=== PATIENT | female | born 1985 ===

== ENCOUNTER 2022-01-19 09:49 | Emergency (ER) | payer OTHER ==
[2022-01-19] MEDS ORDERED: SODIUM CHLORIDE 0.9% 2,000 ML IV ONE (10:08)
[2022-01-19] MEDS ORDERED: ONDANSETRON 4 MG/2 ML VIAL IVP STA (10:08)
[2022-01-19 10:50] LABS: ALT 25 U/L (4-34); African American GFR (CKD) >90 (>60 ml/min/1.73 sqM); Albumin 3.8 g/dL (3.5-5.0); Anion Gap 8 mmol/L; Blood Urea Nitrogen 3 mg/dL (7-17); Calcium 8.9 mg/dL (8.4-10.2); Carbon Dioxide 19 mmol/L (22-30); Chloride 107 mmol/L (98-107); Glucose 86 mg/dL (74-99); Non-African American GFR(CKD) >90 (>60 ml/min/1.73 sqM); Sodium 134 mmol/L (137-145); Total Bilirubin 1.5 mg/dL (0.2-1.3); Total Protein 7.2 g/dL (6.3-8.2)
[2022-01-19 10:57] LABS: Appearance,Urine Cloudy (Clear); Bacteria,Urine Rare /hpf; Bilirubin,Urine 1+ (Negative); Blood,Urine Negative (Negative); Color,Urine Orange; Glucose,Urine (UA) Negative (Negative); Ketones,Urine 1+ (Negative); Leukocyte Esterase,Urine Large (Negative); Mucus,Urine Few /hpf; Nitrite,Urine Negative (Negative); Protein,Urine Trace (Negative); Squamous Epithelial Cell,Urine 24 /hpf (0-4); WBC,Urine 7 /hpf (0-5)
[2022-01-19 11:02] LABS: AST 40 U/L (14-36); Alkaline Phosphatase 88 U/L (38-126); Potassium 4.5 mmol/L (3.5-5.1)
[2022-01-19 11:07] LABS: Basophils % (A) 0 %; Eosinophils # (A) 0.1 k/uL (0-0.7); Eosinophils % (A) 1 %; HCT 42.6 % (34.0-46.0); Lymphocytes # (A) 1.8 k/uL (1.0-4.8); Lymphocytes % (A) 19 %; MCH 30.5 pg (25.0-35.0); MCHC 32.9 g/dL (31.0-37.0); MCV 92.8 fL (80.0-100.0); Mean Platelet Volume 8.1; Monocytes # (A) 0.7 k/uL (0-1.0); Monocytes % (A) 7 %; Neutrophils # (A) 6.6 k/uL (1.3-7.7); Neutrophils % (A) 71 %; Platelet Count 357 k/uL (150-450); RBC 4.59 m/uL (3.80-5.40); RDW 12.1 % (11.5-15.5); WBC 9.3 k/uL (3.8-10.6)
--- NOTE | 2022-01-19 11:16 | ED ---
Nausea/Vomiting/Diarrhea HPI - General Chief complaint: Nausea/Vomiting/Diarrhea Stated complaint: covid+, dehydration Time Seen by Provider: 01/19/22 09:56 Source: patient, RN notes reviewed Mode of arrival: ambulatory Limitations: no limitations - History of Present Illness Initial comments: This is a 37-year-old female presents emergency apartment with chief complaint of nausea vomiting, dehydration. Patient states that she started symptoms COVID-19 one week ago. She did test positive she was seen at [facility] which she was diagnosed with UTI, Kemar. Patient states that she still been having intermittent nausea vomiting. Patient called her [facility] Dr. Rogers who recommended to come emergency department. She denies any complaints. She states she is 24 weeks she is A0. Denies any vaginal bleeding or vaginal discharge. Patient states she's had no recent fever states the fever chills beginning. - Related Data Previous Rx's Medication Instructions Recorded Ondansetron Odt [Zofran Odt] 4 mg PO Q8HR PRN #10 tab 01/19/22 Allergies Allergy/AdvReac Type Severity Reaction Status Date / Time No Known Allergies Allergy Verified 01/19/22 09:56 Review of Systems ROS Statement: Those systems with pertinent positive or pertinent negative responses have been documented in the HPI. ROS Other: All systems not noted in ROS Statement are negative. Past Medical History Past Medical History: No Reported History History of Any Multi-Drug Resistant Organisms: None Reported Past Surgical History: No Surgical Hx Reported Past Psychological History: No Psychological Hx Reported Smoking Status: Never smoker Past Alcohol Use History: None Reported Past Drug Use History: None Reported General Exam Limitations: no limitations General appearance: alert, in no apparent distress Head exam: Present: atraumatic, normocephalic, normal inspection Eye exam: Present: normal appearance, PERRL, EOMI. Absent: scleral icterus, conjunctival injection, periorbital swelling Respiratory exam: Present: normal lung sounds bilaterally. Absent: respiratory distress, wheezes, rales, rhonchi, stridor Cardiovascular Exam: Present: regular rate, normal rhythm, normal heart sounds. Absent: systolic murmur, diastolic murmur, rubs, gallop, clicks GI/Abdominal exam: Present: soft, normal bowel sounds. Absent: distended, tenderness, guarding, rebound, rigid Back exam: Absent: CVA tenderness (R), CVA tenderness (L) Neurological exam: Present: alert, oriented X3 Course Vital Signs 01/19/22 09:53 Temperature 98.1 F Pulse Rate 75 Respiratory 20 Rate Blood Pressure 121/84 O2 Sat by Pulse 99 Oximetry Medical Decision Making - Medical Decision Making Patient was well hydrated, labs do not reveal any significant findings. Urinalysis shows small amount of bacteria though patient on antibiotics. Patient discharged in stable condition return parameters were discussed. - Lab Data Result diagrams: 01/19/22 10:19 01/19/22 10:19 Lab Results 01/19/22 01/19/22 01/19/22 Range/Units 10:19 10:19 10:19 WBC 9.3 (3.8-10.6) k/uL RBC 4.59 (3.80-5.40) m/uL Hgb 14.0 (11.4-16.0) gm/dL Hct 42.6 (34.0-46.0) % MCV 92.8 (80.0-100.0) fL MCH 30.5 (25.0-35.0) pg MCHC 32.9 (31.0-37.0) g/dL RDW 12.1 (11.5-15.5) % Plt Count 357 (150-450) k/uL MPV 8.1 Neutrophils % 71 % Lymphocytes % 19 % Monocytes % 7 % Eosinophils % 1 % Basophils % 0 % Neutrophils # 6.6 (1.3-7.7) k/uL Lymphocytes # 1.8 (1.0-4.8) k/uL Monocytes # 0.7 (0-1.0) k/uL Eosinophils # 0.1 (0-0.7) k/uL Basophils # 0.0 (0-0.2) k/uL Sodium 134 L (137-145) mmol/L Potassium 4.5 (3.5-5.1) mmol/L Chloride 107 (98-107) mmol/L Carbon Dioxide 19 L (22-30) mmol/L Anion Gap 8 mmol/L BUN 3 L (7-17) mg/dL Creatinine 0.49 L (0.52-1.04) mg/dL Est GFR (CKD-EPI)AfAm >90 (>60 ml/min/1.73 sqM) Est GFR (CKD-EPI)NonAf >90 (>60 ml/min/1.73 sqM) Glucose 86 (74-99) mg/dL Calcium 8.9 (8.4-10.2) mg/dL Total Bilirubin 1.5 H (0.2-1.3) mg/dL AST 40 H (14-36) U/L ALT 25 (4-34) U/L Alkaline Phosphatase 88 (38-126) U/L Total Protein 7.2 (6.3-8.2) g/dL Albumin 3.8 (3.5-5.0) g/dL Urine Color [place] Urine Appearance Cloudy H (Clear) Urine pH 6.0 (5.0-8.0) Ur Specific [place] 1.020 (1.001-1.035) Urine Protein Trace H (Negative) Urine Glucose (UA) Negative (Negative) Urine Ketones 1+ H (Negative) Urine Blood Negative (Negative) Urine Nitrite Negative (Negative) Urine Bilirubin 1+ H (Negative) Urine Urobilinogen 8.0 (<2.0) mg/dL Ur Leukocyte Esterase Large H (Negative) Urine WBC 7 H (0-5) /hpf Ur Squamous Epith Cells 24 H (0-4) /hpf Urine Bacteria Rare H (None) /hpf Urine Mucus Few H (None) /hpf Disposition Clinical Impression: COVID-19, Nausea & vomiting Disposition: HOME SELF-CARE Condition: Stable Instructions (If sedation given, give patient instructions): Acute Nausea and Vomiting (ED) Additional Instructions: Please return to the Emergency Department if symptoms worsen or any other concerns. Prescriptions: Ondansetron Odt [Zofran Odt] 4 mg PO Q8HR PRN #10 tab PRN Reason: Nausea Is patient prescribed a controlled substance at d/c from ED?: No Referrals: None,Stated [Primary Care Provider] - 1-2 days Time of Disposition: 11:15
[2022-01-19 11:36] VITALS: BP 106/71; RESP 18; TEMP 97.6
[2022-01-19 11:40] VITALS: PULSE 74
== END 2022-01-19 11:55 | disposition home or self-care (01) ==
LOC: EC 09:49
DX: U07.1 COVID-19 (principal); R11.2 Nausea with vomiting, unspecified
CPT/HCPCS: 36415; 80053; 85025; 81001; 99284; 96374; 96361; J2405

== ENCOUNTER 2022-04-26 04:16 | Inpatient (IN) | payer MEDICAID, OTHER ==
[2022-04-26 05:52] LABS: Basophils % (A) 0 %; Eosinophils # (A) 0.1 k/uL (0-0.7); Eosinophils % (A) 1 %; HCT 35.3 % (34.0-46.0); HGB 12.2 gm/dL (11.4-16.0); Lymphocytes # (A) 1.8 k/uL (1.0-4.8); Lymphocytes % (A) 21 %; MCH 29.9 pg (25.0-35.0); MCHC 34.5 g/dL (31.0-37.0); MCV 86.7 fL (80.0-100.0); Mean Platelet Volume 9.3; Monocytes # (A) 0.5 k/uL (0-1.0); Monocytes % (A) 6 %; Neutrophils # (A) 6.2 k/uL (1.3-7.7); Neutrophils % (A) 69 %; Platelet Count 277 k/uL (150-450); RBC 4.07 m/uL (3.80-5.40); RDW 13.1 % (11.5-15.5); WBC 8.9 k/uL (3.8-10.6)
[2022-04-26 05:59] LABS: Appearance,Urine Cloudy (Clear); Bacteria,Urine Occasional /hpf; Bilirubin,Urine Negative (Negative); Blood,Urine Negative (Negative); Color,Urine Yellow; Glucose,Urine (UA) Negative (Negative); Ketones,Urine Negative (Negative); Leukocyte Esterase,Urine Large (Negative); Mucus,Urine Rare /hpf; Nitrite,Urine Negative (Negative); Protein,Urine Trace (Negative); RBC,Urine 8 /hpf (0-5); Specific Gravity,Urine 1.013 (1.001-1.035); Squamous Epithelial Cell,Urine 4 /hpf (0-4); Urobilinogen,Urine <2.0 mg/dL (<2.0); WBC,Urine 19 /hpf (0-5)
[2022-04-26 06:01] LABS: INR 0.9 (<1.2); Partial Thromboplastin Time 22.1 sec (22.0-30.0); Prothrombin Time 9.7 sec (9.0-12.0)
[2022-04-26 06:10] LABS: ALT 13 U/L (4-34); AST 18 U/L (14-36); African American GFR (CKD) >90 (>60 ml/min/1.73 sqM); Blood Urea Nitrogen 5 mg/dL (7-17); LDH 458 U/L (313-618); Magnesium 1.5 mg/dL (1.6-2.3); Non-African American GFR(CKD) >90 (>60 ml/min/1.73 sqM); Uric Acid 3.2 mg/dL (3.7-7.4)
[2022-04-26 06:44] LABS: Protein/Creatinine Ratio,Urine 0.187
[2022-04-26] MEDS ORDERED: CITRIC ACID-SODIUM CITRATE 15 ML CUP PO ONE (07:48)
[2022-04-26 08:20] LABS: Glucose,Whole Blood 86 mg/dL (70-110)
[2022-04-26] MEDS: LACTATED RINGERS 1,000 ML IV SCH ×5 (08:25→14:39)
[2022-04-26] MEDS ORDERED: PHENYLEPHRINE-0.9% NACL SYG 1,000 MCG/10 ML SYRINGE ONE (08:44)
[2022-04-26] MEDS ORDERED: KETOROLAC 15 MG/ML 1 ML VIAL ONE (08:44)
[2022-04-26] MEDS ORDERED: ONDANSETRON 4 MG/2 ML VIAL ONE (08:44)
[2022-04-26] MEDS ORDERED: fentaNYL (PF) 50 MCG/ML 2 ML AMP ONE (08:44)
[2022-04-26] MEDS ORDERED: NALBUPHINE 10 MG/ML (1 ML AMP) ONE (08:44)
[2022-04-26] MEDS ORDERED: OXYTOCIN 30 UNITS/500 ML NS BAG IV ONE (08:44)
[2022-04-26] MEDS ORDERED: MORPHINE SULFATE (PF) 0.3 MG/0.3 ML SYR ONE (08:44)
--- NOTE | 2022-04-26 09:45 | P.HPOB ---
History of Present Illness H&P Date: 04/26/22 Chief Complaint: Contractions This is a 37-year-old female 2 para 1 with an estimated date of confinement of 05/07/2022, estimated gestational age of 38-4/7 weeks, who presents to labor and delivery complaining of contractions that began a couple days ago and were approximately every 15 minutes when she came in. On arrival her blood pressures were elevated initially around 170 over 90s but did come down. All of her preeclamptic workup was negative. In light of the contractions and labile blood pressures, the decision is made to proceed with repeat section today. In addition she has requested tubal ligation. She has previously signed consents in the office for this. Her was complicated by gestational diabetes diet controlled. In addition the baby was diagnosed with trisomy 21. labs: Group B streptococcus-negative One hour Glucola-188 Hepatitis B surface antigen-negative RPR-nonreactive Rubella-nonimmune Blood type-AB+ Antibody screen-negative HIV-nonreactive Hemoglobin-12.6 Random glucose-163 Pap smear-within normal limits, positive high risk HPV, type XVI and 18-negative GC/chlamydia/Trichomonas-negative Obstetrical history: . History of 1 delivery at term for breech presentation. Gynecologic history: No history of sexual transmitted diseases. Social history: She is single. She is currently unemployed. Review of Systems Constitutional: Denies chills, Denies fever Eyes: denies blurred vision, denies pain Ears, nose, mouth and throat: Denies headache, Denies sore throat Cardiovascular: Denies chest pain, Denies shortness of breath Respiratory: Denies cough Gastrointestinal: Reports abdominal pain (Contractions) Genitourinary: Reports pelvic pain, Reports Musculoskeletal: Reports low back pain Integumentary: Denies pruritus, Denies rash Neurological: Denies numbness, Denies weakness Psychiatric: Denies anxiety, Denies depression Past Medical History Additional Past Medical History / Comment(s): Gestational diabetes-diet controlled History of Any Multi-Drug Resistant Organisms: None Reported Past Surgical History: Section Past Anesthesia/Blood Transfusion Reactions: No Reported Reaction Past Psychological History: No Psychological Hx Reported Smoking Status: Never smoker Past Alcohol Use History: None Reported Past Drug Use History: None Reported - Past Family History Mother Family Medical History: Diabetes Mellitus Medications and Allergies Home Medications Medication Instructions Recorded Confirmed Type Vit No.179/Iron/Folic 1 tab PO DAILY 04/26/22 04/26/22 History [ Tablet] Allergies Allergy/AdvReac Type Severity Reaction Status Date / Time No Known Allergies Allergy Verified 01/19/22 09:56 Exam Osteopathic Statement: *. No significant issues noted on an osteopathic structural exam other than those noted in the History and Physical/Consult. Vital Signs Temp Pulse Resp BP Pulse Ox 04/26/22 07:23 98.2 F 86 16 138/86 99 04/26/22 04:21 97.3 F L 89 16 173/97 99 Intake and Output 04/25/22 04/26/22 04/26/22 22:59 06:59 14:59 Other: Weight 97.522 kg 97.522 kg HEENT: Within normal limits Heart: Regular rate and rhythm Lungs: Clear to auscultation bilaterally Abdomen: Cervix: Was not checked on admission heart tones: Reactive, category 1 Contractions: Approximately every 15 minutes Extremities: Negative Homans Results Result Diagrams: 04/26/22 05:37 04/26/22 05:37 Abnormal Lab Results - Last 24 Hours (Table) 04/26/22 04/26/22 04/26/22 Range/Units 05:37 05:37 05:37 Fibrinogen 571 H (200-500) mg/dL BUN 5 L (7-17) mg/dL Creatinine 0.46 L (0.52-1.04) mg/dL Uric Acid 3.2 L (3.7-7.4) mg/dL Magnesium 1.5 L (1.6-2.3) mg/dL Urine Appearance Cloudy H (Clear) Urine Protein Trace H (Negative) Ur Leukocyte Esterase Large H (Negative) Urine RBC 8 H (0-5) /hpf Urine WBC 19 H (0-5) /hpf Urine Bacteria Occasional H (None) /hpf Urine Mucus Rare H (None) /hpf Assessment and Plan (1) 38 weeks gestation of Current Visit: Yes Status: Acute Code(s): Z3A.38 - 38 WEEKS GESTATION OF SNOMED Code(s): 45336331 (2) Gestational diabetes Current Visit: Yes Status: Acute Code(s): O24.419 - GESTATIONAL DIABETES MELLITUS IN , UNSP CONTROL SNOMED Code(s): 06080184 (3) Gestational hypertension Current Visit: Yes Status: Acute Code(s): O13.9 - GESTATIONAL HTN W/O SIGNIFICANT PROTEINURIA, UNSP TRIMESTER SNOMED Code(s): 27244364 (4) History of delivery Current Visit: Yes Status: Acute Code(s): Z98.891 - HISTORY OF UTERINE SCAR FROM PREVIOUS SURGERY SNOMED Code(s): 162924062 (5) Family planning Current Visit: Yes Status: Acute Code(s): Z30.09 - ENCOUNTER FOR OT GENERAL CNSL AND ADVICE ON CONTRACEPTION SNOMED Code(s): 485625993 (6) Trisomy 21 of fetus in current shahid Current Visit: Yes Status: Acute Code(s): O35.13X0 - MAT CARE CHROMOSOMAL ABNORMALITY IN FETUS, TRISOMY 21, UNSP SNOMED Code(s): 293338333851703 Plan: Admission for repeat low transverse section with bilateral partial salpingectomy. Will monitor blood pressures. I have discussed the risks, benefits, and alternative therapies for the above- mentioned procedure and for both sedation/anesthesia as well as necessary blood products administration, if indicated, as they pertain to this patient. The patient has indicated her understanding and acceptance of the risks and procedures discussed.
--- NOTE | 2022-04-26 09:50 | P.OP ---
Date of Procedure: 04/26/22 Preoperative Diagnosis: 1. Intrauterine at 38-4/7 weeks. 2. Gestational hypertension. 3. Gestational diabetes. 4. Family-planning. 5. History of previous . 6. Fetus with trisomy 21. Postoperative Diagnosis: Same Procedure(s) Performed: Repeat low transverse section with bilateral partial salpingectomy Anesthesia: spinal (Duramorph) Surgeon: Lanette Rogers Director Smb Sales #1: Shanthi Diaz Estimated Blood Loss (ml): 400 Pathology: other (Placenta, portions of right and left fallopian tubes) Condition: stable Disposition: floor Indications for Procedure: This is a 37-year-old female 2 para 1 at 38-2/7 weeks who presented with regular contractions and elevated blood pressures. Preeclamptic workup was negative and blood pressures did normalize area due to the diagnosis of gestational hypertension, the decision is made to proceed with repeat section with bilateral partial salpingectomy. I have discussed the risks, benefits, and alternative therapies for the above- mentioned procedure and for both sedation/anesthesia as well as necessary blood products administration, if indicated, as they pertain to this patient. The patient has indicated her understanding and acceptance of the risks and proced ures discussed. Operative Findings: A viable male infant is noted in the vertex presentation with scores of 8 at 1 minute and 9 at 5 minutes and nuchal cord times one. Infant weight was 8 lbs. 11 oz. Normal uterus tubes and ovaries are noted. Description of Procedure: The patient is taken to the operating room where she is placed in the dorsal supine position with leftward tilt after spinal Duramorph anesthesia is given. She is prepped and draped in the normal sterile fashion. Skin was tested and found to be adequately anesthetized. A Pfannenstiel skin incision was made with a scalpel. A second knife was used to carry the incision down to the underlying layer of fascia. The fascia was nicked in the midline with a scalpel and then extended laterally bilaterally with Patel scissors. The anterior lip of the fascia was grasped with 2 Linda clamps and then dissected off the underlying rectus muscle in the midline with Patel scissors. The inferior aspect of the fascial incision was grasped with 2 Linda clamps and dissected off the underlying rectus muscle and the midline with Patel scissors. Next the peritoneum layer was tented up with 2 hemostats and then entered sharply with the scalpel. The incision is extended superiorly and inferiorly with Metzenbaum scissors. Next a DeLee retractor is placed. The vesicouterine peritoneum is entered sharply with Metzenbaum scissors and extended laterally bilaterally with Metzenbaum scissors and then the bladder flap is pushed inferiorly. The lower uterine segment is incised in transverse fashion with the scalpel and then bluntly entered with a hemostat. Clear fluid is noted. The incision was then extended laterally bilaterally with 2 fingers. Next the 's head is delivered through the incision. Nuchal cord times one was reduced around the 's head. Nose and mouth are bulb suctioned. The remainder of the is easily delivered and placed on mother's abdomen. Cord is clamped and cut. Infant is taken to warmer by nursing staff. Uterine fundus is gently massaged and placenta is delivered manually. Uterus is exteriorized and cleared of all clots and debris. Uterine incision is closed with 0 Vicryl suture in a running locked fashion. A second layer of 0 Vicryl suture is used in a running fashion for hemostasis. The vesicouterine peritoneum was noted to be hemostatic. Attention is then turned to the tubes. The right fallopian tube is grasped in the midportion with a hemostat. The mesosalpinx is entered with Bovie cautery. 0 Vicryl suture is tied 2 times around both the proximal and distal portion of the tube. The knuckle of tube was then removed with Metzenbaum scissors and the ends of the tube are cauterized with Bovie cautery. The same procedure is carried out on the left fallopian tube. Posterior cul-de-sac is suctioned of all clots and debris. Uterus is returned to the abdomen. Incision is noted to be hemostatic. Both tubal segments were inspected and noted to be hemostatic. Peritoneal layer is closed with 0 Vicryl suture in a running fashion. Muscle layer is reapproximated with 0 Vicryl suture in interrupted fashion. Fascia layer is then closed with 0 PDS suture with 2 sutures meeting in the midline and the knots buried in either side and in the midline. The subcutaneous tissue was then closed with 2-0 Vicryl suture. Skin layer was then closed with sly. All sponge and needle counts are correct. The patient is taken to recovery room in stable condition.
[2022-04-26] MEDS ORDERED: NALOXONE 0.4 MG/ML 1 ML VIAL IV PRN ×2 (09:59→10:34)
--- NOTE | 2022-04-26 10:03 | P.ANPRN ---
Procedure Note - Anesthesia - Epidural/Spinal Spinal Time Out Performed: Yes Date of Procedure: 04/19/22 Procedure Stop Time: 08:56 Location of Patient: OB Indication: Acute Post-Operative Pain, Requested by Surgeon Sedation Type: Awake Preparation: Sterile Dressing Position: Sitting Catheter: None Needle Guage: 25, Other (see comment) (3.5 inch Spinal needle used.) Blood Aspirated: No Pain Paresthesia on Injection Noted: No Events: Other (see comment) (1.6 mL of 0.65% preservative-free bupivacaine heavy prepared by central pharmacy under sterile conditions. 1.6 mL of 0.65% bupivacaine heavy mixed with 300 g of preservative free morphine)
[2022-04-26] MEDS ORDERED: diphenhydrAMINE 25 MG CAP PO PRN (10:34)
[2022-04-26] MEDS ORDERED: HYDROmorphone 1 MG/ML 1 ML SYRINGE IVP PRN (10:34)
[2022-04-26] MEDS ORDERED: METOCLOPRAMIDE 5 MG/ML 2 ML VIAL IVP PRN (10:34)
[2022-04-26] MEDS ORDERED: ZOLPIDEM 5 MG TAB PO PRN (10:34)
[2022-04-26] MEDS ORDERED: diphenhydrAMINE 50 MG/ML 1 ML VIAL IVP PRN ×2 (10:34)
[2022-04-26] MEDS ORDERED: ONDANSETRON 4 MG/2 ML VIAL IVP PRN (10:34)
[2022-04-26] MEDS ORDERED: SIMETHICONE 80 MG CHEWABLE PO PRN (10:34)
[2022-04-26] MEDS ORDERED: OXYTOCIN 30 UNITS/500 ML NS 30 UNIT in SALINE 1 500ML.BAG IV SCH (10:34)
[2022-04-26] MEDS ORDERED: diphenhydrAMINE 50 MG CAP PO PRN (10:34)
[2022-04-26] MEDS ORDERED: HYDROmorphone 0.5 MG/0.5 ML SYRINGE IVP PRN (10:34)
[2022-04-26] MEDS ORDERED: MEASLES-MUMPS-RUBELLA VACC/PF 12,500 UNIT/0.5 ML VIAL SQ ONE (10:34)
[2022-04-26] MEDS ORDERED: LANOLIN CREAM 5 GM TUBE TOPICAL PRN (10:34)
[2022-04-26] MEDS: ACETAMINOPHEN TAB 500 MG TAB PO SCH ×2 (14:37→22:22)
[2022-04-26] MEDS: KETOROLAC 15 MG/ML 1 ML VIAL IVP SCH ×2 (16:07→23:37)
[2022-04-26] MEDS: IBUPROFEN 600 MG TAB PO SCH ×2 (20:06→22:19)
[2022-04-26] MEDS: ACETAMINOPHEN IV (For NPO) 1,000 MG in EMPTY BAG 1 BAG IVPB SCH ×2 (20:06→23:37)
[2022-04-26] MEDS: SENNOSIDES-DOCUSATE SODIUM 1 EACH TAB PO SCH (22:23)
[2022-04-27] MEDS: ACETAMINOPHEN TAB 500 MG TAB PO SCH ×4 (02:09→23:21)
[2022-04-27] MEDS: LACTATED RINGERS 1,000 ML IV SCH ×2 (04:09→20:10)
[2022-04-27] MEDS: IBUPROFEN 600 MG TAB PO SCH ×4 (04:09→23:11)
[2022-04-27] MEDS: KETOROLAC 15 MG/ML 1 ML VIAL IVP SCH ×2 (04:10→20:10)
[2022-04-27 07:09] LABS: Basophils % (A) 0 %; Eosinophils % (A) 0 %; HCT 32.4 % (34.0-46.0); HGB 11.1 gm/dL (11.4-16.0); Lymphocytes # (A) 1.5 k/uL (1.0-4.8); Lymphocytes % (A) 12 %; MCH 30.2 pg (25.0-35.0); MCHC 34.3 g/dL (31.0-37.0); MCV 88.1 fL (80.0-100.0); Mean Platelet Volume 9.5; Monocytes # (A) 0.8 k/uL (0-1.0); Monocytes % (A) 7 %; Neutrophils # (A) 9.9 k/uL (1.3-7.7); Neutrophils % (A) 79 %; Platelet Count 230 k/uL (150-450); RBC 3.68 m/uL (3.80-5.40); RDW 12.8 % (11.5-15.5); WBC 12.5 k/uL (3.8-10.6)
[2022-04-27] MEDS: SENNOSIDES-DOCUSATE SODIUM 1 EACH TAB PO SCH ×2 (08:02→23:21)
--- NOTE | 2022-04-27 08:05 | P.PN ---
Progress Note - Text Progress Note Date: 04/27/22 (0221) Anesthesia Postop day 1 Subjective: Status Post section with Duramorph. Patient seen and examined. Doing well without complaint. VAS 4 out of 10. Nausea vomiting or pruritus. Denies fever. Gross lower extremity strength intact. Spinal site intact without induration. Without apparent anesthetic complications. Objective: Vital signs reviewed Heart: Regular Rate Lungs: Good chest excursion Abdomen: Appears nondistended Assessment: Status post with Duramorph postop day 1 Plan: Continue current care with your medical management.
--- NOTE | 2022-04-27 08:56 | P.PNOBGPC ---
Subjective - Subjective Principal diagnosis: Status post repeat section with tubal ligation POD #1 Interval history: Patient is doing fairly well. Lochia is slowing down. Pain is well-controlled. She is passing flatus but no bowel movement yet. She is pumping her breast milk. Baby is in level I nursery on some oxygen at this time. Patient reports: Reports appetite normal, Reports voiding normally, Reports pain well controlled, Reports ambulating normally : other (In level I nursery) Objective - Vital Signs Latest vital signs: Vital Signs Temp Pulse Resp BP Pulse Ox 04/27/22 08:00 98.0 F 78 18 141/82 04/27/22 04:00 98.1 F 76 16 118/80 96 04/27/22 03:00 99 04/26/22 22:46 99 04/26/22 22:20 98.5 F 81 18 133/87 99 04/26/22 15:50 98.9 F 80 16 121/74 04/26/22 15:00 98.9 F 80 16 121/74 97 04/26/22 13:00 17 04/26/22 11:39 80 16 130/76 95 04/26/22 11:09 87 16 124/83 98 04/26/22 11:00 16 04/26/22 10:39 78 16 128/85 99 04/26/22 10:24 80 16 153/88 96 04/26/22 10:09 79 16 141/98 94 L 04/26/22 10:00 16 96 04/26/22 09:54 76 16 142/88 95 04/26/22 09:39 77 16 150/91 77 L Intake and Output 04/26/22 04/27/22 04/27/22 22:59 06:59 14:59 Intake Total 540 Output Total 500 500 400 Balance -500 40 -400 Intake: Oral 540 Output: Urine 500 500 400 Uretheral ([place]) 500 Other: # Voids 1 - Exam Extremities: Present: normal. Absent: tenderness, edema Abdomen: Present: normal appearance, soft. Absent: distention, tenderness Incision: Present: normal, dry, intact. Absent: erythematous Uterus: Present: normal, firm. Absent: tenderness - Labs Labs: Abnormal Lab Results - Last 24 Hours (Table) 04/27/22 Range/Units 06:44 WBC 12.5 H (3.8-10.6) k/uL RBC 3.68 L (3.80-5.40) m/uL Hgb 11.1 L (11.4-16.0) gm/dL Hct 32.4 L (34.0-46.0) % Neutrophils # 9.9 H (1.3-7.7) k/uL Assessment and Plan Assessment: Status post repeat low transverse section with bilateral partial salpingectomy postoperative day #1 (1) 38 weeks gestation of Current Visit: Yes Status: Acute Code(s): Z3A.38 - 38 WEEKS GESTATION OF SNOMED Code(s): 10999011 (2) Gestational diabetes Current Visit: Yes Status: Acute Code(s): O24.419 - GESTATIONAL DIABETES MELLITUS IN , UNSP CONTROL SNOMED Code(s): 25556485 (3) Gestational hypertension Current Visit: Yes Status: Acute Code(s): O13.9 - GESTATIONAL HTN W/O SIGNIFICANT PROTEINURIA, UNSP TRIMESTER SNOMED Code(s): 31125946 (4) History of delivery Current Visit: Yes Status: Acute Code(s): Z98.891 - HISTORY OF UTERINE SCAR FROM PREVIOUS SURGERY SNOMED Code(s): 529408116 (5) Family planning Current Visit: Yes Status: Acute Code(s): Z30.09 - ENCOUNTER FOR OTH GENERAL CNSL AND ADVICE ON CONTRACEPTION SNOMED Code(s): 806470962 (6) Trisomy 21 of fetus in current shahid Current Visit: Yes Status: Acute Code(s): O35.13X0 - MAT CARE CHROMOSOMAL ABNORMALITY IN FETUS, TRISOMY 21, UNSP SNOMED Code(s): 118777796321154 Plan: Continue with postoperative care. Will order breast pump today. Advance diet as tolerated. Dr. Diaz will be covering her care this weekend.
--- NOTE | 2022-04-27 08:59 | P.MSEPDOC ---
Presenting Problems - Arrival Data Date of Arrival on Unit: 04/26/22 Time of Arrival on Unit: 07:08 Mode of Transport: Bed - Complaint OB-Reason for Admission/Chief Complaint: PIH Medical History - Information : 2 Para: 1 Term: 1 : 0 Abortions: Spontaneous or Elective: 0 Number of Living Children: 1 - Gestational Age Gestational Age by CORI (wks/days): 39 Weeks and 1 Days - History Complications: Prior Review of Systems - Review of Systems Constitutional: No problems Breast: No problems ENT: No problems Cardiovascular: No problems Respiratory: No problems Gastrointestinal: No problems Genitourinary: No problems Musculoskeletal: No problems Neurological: No problems Skin: No problems Vital Signs - Temperature Temperature: 98.0 F Temperature Source: Oral - Pulse Pulse Oximetery Pulse Rate: 78 Pulse Assessment Method: Automatic Cuff - Respirations Respiratory Rate: 18 Oxygen Delivery Method: Room Air - Blood Pressure Right Arm Blood Pressure: 141/82 Blood Pressure Mean: 101 Blood Pressure Source: Automatic Cuff Medical Screen Scoring - Assessment - Baby A Heart Rate - NICHD Category: Category I (Normal) NST: Reactive Physician Notification - Physician Notified Physician Notified Date: 04/26/22 Physician Notified Time: 07:05 Physician: Lanette Rogers Order Received: Yes - Notification Comment Comment: Orders to admit patient for section with tubal ligation Maternal Triage Index - Stat/Priority 1 Stat Priority 1: No - Urgent/Priority 2 Urgent Priority 2: No - Prompt/Priority 3 Prompt Priority 3: Yes Criteria Met for Priority 3: patient admitted for [facility] Disposition - Disposition OB Disposition: Admit Transferred to:: st 2 I agree with the RN Medical Screening Exam: Yes Case reviewed; plan agreed upon as documented in EMR&OBIX.: Yes Diagnosis: GESTATIONAL HTN W/O SIGNIFICANT PROTEINURIA, THIRD TRIMESTER
[2022-04-28] MEDS: ACETAMINOPHEN TAB 500 MG TAB PO SCH ×4 (02:06→20:59)
[2022-04-28] MEDS: SENNOSIDES-DOCUSATE SODIUM 1 EACH TAB PO SCH ×2 (08:19→20:59)
--- NOTE | 2022-04-28 09:54 | P.PNOBGPC ---
Subjective - Subjective Principal diagnosis: Status post repeat low transverse postop day 2 Interval history: Patient seen and examined. Denies nausea, vomiting, chest pain, shortness of breath or any calf pain. Patient reports: Reports appetite normal, Reports voiding normally, Reports pain well controlled, Reports ambulating normally Objective - Vital Signs Latest vital signs: Vital Signs Temp Pulse Resp BP Pulse Ox 04/27/22 23:59 97.9 F 90 16 123/81 98 04/27/22 15:02 98 F 88 16 144/82 Intake and Output 04/27/22 04/28/22 04/28/22 22:59 06:59 14:59 Other: Voiding Method Toilet Indwelling Catheter # Voids 2 - Exam Lungs: bilateral: normal Chest: Normal S1, Normal S2 Extremities: Present: normal Abdomen: Present: normal appearance, soft. Absent: distention, tenderness Incision: Present: normal, dry, intact Uterus: Present: normal, firm Assessment and Plan (1) Status post repeat low transverse section Current Visit: Yes Status: Acute Code(s): Z98.891 - HISTORY OF UTERINE SCAR FROM PREVIOUS SURGERY SNOMED Code(s): 295428113 Plan: 1. Increase ambulation 2. Pain management
[2022-04-28] MEDS: IBUPROFEN 600 MG TAB PO SCH ×4 (11:46→23:55)
[2022-04-29] MEDS: ACETAMINOPHEN TAB 500 MG TAB PO SCH ×2 (03:02→18:20)
[2022-04-29] MEDS: IBUPROFEN 600 MG TAB PO SCH ×3 (07:57→17:04)
--- NOTE | 2022-04-29 09:09 | P.PNOBGPC ---
Subjective - Subjective Principal diagnosis: Status post repeat low transverse postop day #3 Interval history: Patient seen and examined. Denies nausea, vomiting, chest pain, shortness of breath or any calf pain. Patient is seen holding her baby in the nursery. Patient reports: Reports appetite normal, Reports voiding normally, Reports pain well controlled, Reports ambulating normally Objective - Vital Signs Latest vital signs: Vital Signs Temp Pulse Resp BP Pulse Ox 04/28/22 23:57 98.7 F 72 16 135/84 98 04/28/22 16:00 97.8 F 73 18 115/77 99 Intake and Output 04/28/22 04/29/22 04/29/22 22:59 06:59 14:59 Other: # Voids 2 - Exam Lungs: bilateral: normal Chest: Normal S1, Normal S2 Extremities: Present: normal Abdomen: Present: normal appearance, soft. Absent: distention, tenderness Incision: Present: normal, dry, intact Uterus: Present: normal, firm Assessment and Plan (1) Status post repeat low transverse section Current Visit: Yes Status: Acute Code(s): Z98.891 - HISTORY OF UTERINE SCAR FROM PREVIOUS SURGERY SNOMED Code(s): 471793656 Plan: 1. Continue postop care
[2022-04-29] MEDS: SENNOSIDES-DOCUSATE SODIUM 1 EACH TAB PO SCH (12:02)
[2022-04-30] MEDS: ACETAMINOPHEN TAB 500 MG TAB PO SCH ×3 (02:11→06:05)
[2022-04-30] MEDS: IBUPROFEN 600 MG TAB PO SCH ×3 (02:12→08:05)
[2022-04-30] MEDS: SENNOSIDES-DOCUSATE SODIUM 1 EACH TAB PO SCH ×2 (02:12→08:06)
[2022-04-30 08:11] VITALS: RESP 16
--- NOTE | 2022-04-30 08:21 | P.DS ---
Providers Date of admission: 04/26/22 07:08 Expected date of discharge: 04/30/22 Attending physician: Lanette Rogers Primary care physician: Stated None - Discharge Diagnosis(es) (1) 38 weeks gestation of Current Visit: Yes Status: Acute (2) Gestational diabetes Current Visit: Yes Status: Acute (3) Gestational hypertension Current Visit: Yes Status: Acute (4) History of delivery Current Visit: Yes Status: Acute (5) Family planning Current Visit: Yes Status: Acute (6) Trisomy 21 of fetus in current shahid Current Visit: Yes Status: Acute Hospital Course: This is a 37-year-old female 2 para 1 with an estimated date of confinement of 05/07/2022, estimated gestational age of 38-4/7 weeks who presented to labor and delivery with complaints of contractions and her blood pressures were noted to be elevated. Preeclamptic workup was negative. She was admitted for gestational hypertension and underwent a repeat low transverse section with bilateral partial salpingectomy on 04/26/2022. She delivered a viable male infant with scores of 8 at 1 minute and 9 at 5 minutes and weight of 8 lbs. 11 oz. Her postoperative course has been uncomplicated. She has had quite a few blood pressures were actually on the low side. This morning she did have an elevated blood pressure at 140/100 however she has no other symptoms. She is anxious however because her baby does have to stay in the nursery for a while longer. Her pain is well-controlled. Lochia is decreasing. She is pumping her breast milk. She is passing flatus and bowel movements. Vital signs are stable other than some isolated elevated blood pressures. Abdomen is soft with positive bowel sounds 4. Incision is clean dry and intact with sly in place. Extremities show negative Homans. Impression is status post repeat low transverse section with bilateral partial saphenectomy day #4. Plan is to discharge home later today as long as blood pressures did normalize. She is instructed to follow-up in the office in 1 week for a postoperative check. She is advised to call the office if she has any further questions or concerns prior to her appointment time. Sly will be removed and Steri-Strips placed prior to discharge. She will be given a prescription for ibuprofen. She is encouraged to continue Tylenol also. Plan - Discharge Summary New Discharge Prescriptions: New Ibuprofen [Motrin] 600 mg PO Q6H #60 tab Acetaminophen Tab [Tylenol] 1,000 mg PO Q6H tab Continue Vit No.179/Iron/Folic [ Tablet] 1 tab PO DAILY Discharge Medication List Vit No.179/Iron/Folic [ Tablet] 1 tab PO DAILY 04/26/22 [Hist ory] Acetaminophen Tab [Tylenol] 1,000 mg PO Q6H tab 04/30/22 [Rx] Ibuprofen [Motrin] 600 mg PO Q6H #60 tab 04/30/22 [Rx] Follow up Appointment(s)/Referral(s): Lanette Rogers DO [Doctor of Osteopathic Medicine] - 06/05/22 11:30 am (Post Op appointment 05-07-2022 at 1:30) Activity/Diet/Wound Care/Special Instructions: Instructions 1. Do not begin any exercise program for 3 weeks. 2. Do not resume sexual relations for 3 weeks or longer if uncomfortable. 3. You may take tub baths or showers at any time. 4. You may use tampons if desired after 3 weeks. 5. Keep the area of episiotomy (stitches) clean and dry. 6. If you are not nursing, wear a good fitting, supportive bra during the day and limit fluid intake for at least 1 week to prevent breast engorgement. 7. Call the office, [phone], within the next week to make appointment for your 6 week checkup if it has not already been made. 8. Report any of the following occurrences to the doctor promptly: a. Heavy, excessive bleeding b. Chills, fever c. Burning or frequency of urination d. Pain or redness and breasts if nursing e. Increasing pain or swelling in episiotomy (stitches). In addition to the above instructions, the following additional should be follow ed: 1. No heavy lifting or straining (exercising) until after 6 week checkup. 2. Keep abdominal incision clean and dry: You may wear a dressing if more comfortable. 3. Make office appointment for 10 days after going home or as instructed by her doctor. Discharge Disposition: HOME SELF-CARE
[2022-04-30 13:13] VITALS: BP 135/79; PULSE 80; TEMP 98
== END 2022-04-30 13:15 | disposition home or self-care (01) | DRG 819 ==
LOC: FBPOP 04:16 → 4FBP 07:08
PROVIDERS: ADMIT Obstetrics & Gynecology; ATTEND Obstetrics & Gynecology
PROC: 0UB70ZZ Excision of Bilateral Fallopian Tubes, Open Approach (ICD-10-PCS; principal; 2022-04-26 08:47)
PROC: 0U570ZZ Destruction of Bilateral Fallopian Tubes, Open Approach (ICD-10-PCS; principal; 2022-04-26 08:47)
DX: O34.211 Maternal care for low transverse scar from previous cesarean delivery (principal); O35.13X0 Maternal care for (suspected) chromosomal abnormality in fetus, Trisomy 21, not applicable or unspecified; O24.420 Gestational diabetes mellitus in childbirth, diet controlled; O69.81X0 Labor and delivery complicated by cord around neck, without compression, not applicable or unspecified; O13.4 Gestational [pregnancy-induced] hypertension without significant proteinuria, complicating childbirth; Z30.2 Encounter for sterilization; L29.9 Pruritus, unspecified; Z37.0 Single live birth; Z3A.38 38 weeks gestation of pregnancy; Z56.0 Unemployment, unspecified; Z83.3 Family history of diabetes mellitus
CPT/HCPCS: 36415; 59025; 81001; 82565; 82570; 83615; 83735; 84156; 84450; 84460; 84520; 84550; 85025; 85384; 85610; 85730; 86850; 86900; 86901; 88302; 88307; 90707; 99215